=== PATIENT | male | born 2000 | race American Indian/Alaskan Native ===

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

== ENCOUNTER 2019-03-18 06:14 | Emergency (ER) | payer OTHER ==
[2019-03-18 06:19] VITALS: BP 123/80
--- NOTE | 2019-03-18 08:30 | Emergency Department Report ---
[facility] Chief Complaint: Eye Problems Stated Complaint: LEFT EYE SWELLING/YELLOW DISCHARGE/PAIN Time Seen by Provider: 03/18/19 08:15 Side: Left Severity: moderate Symptoms: Yes Eye Itching, Yes Eye Redness, Yes Mucous Drainage, No Eye Pain, No Purulent Drainage, No Blurred Vision, No Preceding URI, No H/O Allergic Rhinitis, No Contact Lens Use, No Trauma, No Fever, No Headache Other History: This is a 18-year-old male who presents to ED complaining of left thigh a redness and irritation and for the past one day. Patient states he noted a yellowish discharge from the corner of his left eye last night where he was rubbing it and finally went to sleep. Patient states he woke up this morning with some mild swelling. Patient denies blurred vision, blindness, trauma to the eye, foreign object in the eye. ED Review of Systems ROS: Stated complaint: LEFT EYE SWELLING/YELLOW DISCHARGE/PAIN Other details as noted in HPI Comment: All other systems reviewed and negative ED Past Medical Hx - Past Medical History Previous Medical History?: No - Surgical History Past Surgical History?: No - Social History Smoking Status: Never Smoker - Medications Home Medications: Home Medications Medication Instructions Recorded Confirmed Last Taken Type Amoxicillin/K Clav [Augmentin 1 tab PO BID #20 tablet 01/29/13 Unknown Rx 500MG] Fluticasone Propionate [Flonase] 2 sprays NS DAILY #1 spray.susp 01/29/13 Unknown Rx Loratadine (Nf) [Claritin] 10 mg PO DAILY #30 tablet 01/29/13 Unknown Rx Prednisone 20 mg PO QDAY #5 tablet 01/29/13 Unknown Rx Benzonatate 200 mg PO TID PRN #30 capsule 05/01/17 Unknown Rx Fluticasone [Flonase] 1 spray NS QDAY #1 bottle 05/01/17 Unknown Rx Oseltamivir [Tamiflu] 75 mg PO QDAY 5 Days #10 capsule 05/01/17 Unknown Rx Cetirizine HCl [Zyrtec 10mg tab] 10 mg PO DAILY #30 tablet 03/07/18 Unknown Rx predniSONE [Deltasone] 20 mg PO DAILY #5 tablet 03/07/18 Unknown Rx Tobramycin 0.3% [Tobrex] 1 drop OP Q8HR #1 bottle 03/18/19 Unknown Rx [facility] Exam - Exam General: Vital signs noted. No distress. Alert and acting appropriately. Eye Exam: Left Injection, Left Mucous Discharge, Neither Chemosis, Neither Abnormal Pupil, Neither EOMI, Neither Eye Foreign Body, Neither Lid Foreign Body, Neither Purulent Discharge, Neither Fluorescein Uptake HEENT: No Nasal Congestion, No Pharyngeal Erythema Remainder of HEENT: Normal Lungs: Yes Clear Lung Sounds, Yes Good Air Exchange, No Wheezes, No Stridor, No Cough, No Nasal Flaring, No Retractions, No Use of Accessory Muscles Exam: PERRLA, bilaterally, no orbital swelling or periorbital redness. No signs of foreign object in the eye. EYE TEST: B- 20/15 L- 20/20 R-20/13 ED Course Vital Signs 03/18/19 06:18 Temperature 97.8 F Pulse Rate 71 Respiratory 18 Rate Blood Pressure 123/80 O2 Sat by Pulse 98 Oximetry ED Medical Decision Making - Medical Decision Making 18-year-old male presents with left eye conjunctivitis ED course: fragoso lamp test shows no corneal abrasion. discussed this with the patient. Discussed the patient will be going home on antibiotic eyedrops to apply 4-5 times a day I discussed the patient we'll give her feller operator referral if needed he'll follow-up if symptoms persist. I discussed the patient is new or worsening symptoms to return to ED immediately Patient's vital signs are stable he's in no distress. Patient is vision is intact, visual acuity test performed, within normal limits. Discussed the patient to follow up with her primary care physician in 3-5 days. Critical care attestation.: If time is entered above; I have spent that time in minutes in the direct care of this critically ill patient, excluding procedure time. ED Disposition Clinical Impression: Conjunctivitis, Acute conjunctivitis of left eye Disposition: DC-01 TO HOME OR SELFCARE Is pt being admited?: No Does the pt Need Aspirin: No Condition: Stable Instructions: Conjunctivitis (ED) Additional Instructions: Make sure to follow up with the primary care physician as discussed. Take all your medications as you've been prescribed. If you have any worsening symptoms or develop new symptoms please return to ED immediately. Prescriptions: Tobramycin 0.3% [Tobrex] 1 drop OP Q8HR #1 bottle Referrals: ARIA BLEDSOE MD [Staff Physician] - 3-5 Days [facility] [Outside] - 3-5 Days Forms: Accompanied Note, Work/School Release Form(ED) Time of Disposition: 08:38
== END 2019-03-18 08:46 | disposition home or self-care (01) ==
LOC: ED 06:14
DX: H10.32 Unspecified acute conjunctivitis, left eye (principal); Z79.2 Long term (current) use of antibiotics; Z79.899 Other long term (current) drug therapy; Z91.018 Allergy to other foods
CPT/HCPCS: 99282